=== PATIENT | male | born 1955 | race Caucasian/White ===

== ENCOUNTER → 2024-05-11 | Outpatient (CLI) | payer MEDICARE ==
[2024-05-11 12:05] LABS: INR 0.9 (<1.2); Partial Thromboplastin Time 23.7 sec (22.0-30.0); Prothrombin Time 10.4 sec (10.0-12.5)
[2024-05-11 15:54] LABS: ALT 26 U/L (10-49); AST 28 U/L (14-35); Albumin 4.4 g/dL (3.8-4.9); Albumin/Globulin Ratio 1.76 Ratio (1.60-3.17); Alkaline Phosphatase 74 U/L (41-126); BUN/Creat Ratio 14.88 Ratio (12.00-20.00); Blood Urea Nitrogen 11.9 mg/dL (9.0-27.0); Carbon Dioxide 23.9 mmol/L (21.6-31.8); Chloride 99 mmol/L (96-109); Chol/HDL Ratio 2.57 Ratio; Globulin 2.5 g/dL (1.6-3.3); Glucose 94 mg/dL (70-110); LDL Cholesterol,Calculated 83.5 mg/dL (0.0-131.0); Potassium 4.7 mmol/L (3.5-5.5); Prostate Specific Antigen 0.64 ng/mL (0.000-4.500); Sodium 135 mmol/L (135-145); Total Bilirubin 0.6 mg/dL (0.3-1.2); Total Protein 6.9 g/dL (6.2-8.2); VLDL Calculation 13.04 mg/dL (5.00-40.00)
[2024-05-11 16:52] LABS: Basophils # (A) 0.06 X 10*3/uL (0.00-0.10); Basophils % (A) 0.7 %; Eosinophils # (A) 0.36 X 10*3/uL (0.04-0.35); Eosinophils % (A) 4.4 %; HCT 39.1 % (39.6-50.0); HGB 13.6 g/dL (13.0-17.0); MCH 31.3 pg (27.0-32.0); MCHC 34.8 g/dL (32.0-37.0); MCV 89.9 FL (80.0-97.0); Mean Platelet Volume 11.5 FL (9.5-12.2); Monocytes # (A) 0.85 X 10*3/uL (0.20-1.00); Monocytes % (A) 10.5 %; NRBC Per 100 WBC 0 X 10*3/uL (0.00-0.01); Neutrophils # (A) 5.51 X 10*3/uL (1.80-7.70); Neutrophils % (A) 67.9 %; Platelet Count 174 X 10*3/uL (140-440); RBC 4.35 X 10*6/uL (4.40-5.60); RDW 13.2 % (11.5-14.5); WBC 8.12 X 10*3/uL (4.50-10.00)
== END | disposition home or self-care (01) ==
LOC: LABPAT 10:43
PROVIDERS: ATTEND Orthopaedic Surgery
DX: Z01.818 Encounter for other preprocedural examination (principal); Z22.322 Carrier or suspected carrier of Methicillin resistant Staphylococcus aureus; Z13.0 Encounter for screening for diseases of the blood and blood-forming organs and certain disorders involving the immune mechanism; I10 Essential (primary) hypertension; E78.2 Mixed hyperlipidemia; E78.00 Pure hypercholesterolemia, unspecified; M16.11 Unilateral primary osteoarthritis, right hip
CPT/HCPCS: 80053; 80061; 84153; 85025; 85610; 85730; 86850; 86900; 86901; 87070; 93005

== ENCOUNTER 2024-05-22 11:19 | Day surgery (SDC) | payer MEDICARE, OTHER ==
[~2024-05-22 11:19] MED LIST: TRANEXAMIC 1,000 MG/100ML-NACL 1,000 MG in SALINE 1 100ML.BAG IVPB PRN
[2024-05-22] MEDS ORDERED: MAGNESIUM HYDROXIDE 2,400 MG/30 ML CUP PO PRN (11:51)
[2024-05-22] MEDS ORDERED: NALOXONE 0.4 MG/ML 1 ML VIAL IV PRN (11:51)
[2024-05-22] MEDS ORDERED: HYDROmorphone 0.5 MG/0.5 ML SYRINGE IVP PRN ×3 (11:51)
[2024-05-22] MEDS ORDERED: ONDANSETRON 4 MG/2 ML VIAL IVP PRN (11:51)
[2024-05-22] MEDS: ACETAMINOPHEN TAB 500 MG TAB PO PRN (11:53)
[2024-05-22] MEDS: GABAPENTIN 300 MG CAP PO PRN (11:53)
[2024-05-22] MEDS: MELOXICAM 7.5 MG TAB PO PRN (11:54)
[2024-05-22] MEDS: ONDANSETRON 4 MG/2 ML VIAL IVP ONE (12:17)
[2024-05-22] MEDS: DEXAMETHASONE SOD PHOSPHATE 4 MG/ML 1 ML VIAL IV ONE (12:18)
[2024-05-22] MEDS: LACTATED RINGERS 1,000 ML IV SCH (12:18)
[2024-05-22] MEDS: LIDOCAINE 1% (10MG/ML) FOR IV START INTRADERMA PRN (12:21)
[2024-05-22] MEDS: MIDAZOLAM 2 MG/2 ML VIAL IVP ONE (12:26)
[2024-05-22] MEDS: IV FLUID CONTINUATION 1,000 ML IV ONE ×2 (12:28→14:50)
--- NOTE | 2024-05-22 12:35 | P.ANPRN ---
Procedure Note - Anesthesia - Nerve Block Performed Right Ivan Single Time Out Performed: Yes Date of Procedure: 05/22/24 Procedure Start Time: : Procedure Stop Time: 12:35 Location of Patient: OR Indication: Acute Post-Operative Pain, Dx/Pain Location (Right hip pain ), Requested by Surgeon Sedation Type: Sedate with meaningful contact maintained Preparation: Sterile Prep Position: Supine Catheter: None Needle Types: Pajunk Needle Gauge: 21 Ultrasound used to visualize needle placement: Yes Ultrasound used to observe medication spread: Yes Injectate: Other (see comment) (20ml 0.2% Ropivacaine) Blood Aspirated: No Resistance on Injection: Normal Image Stored and Saved: Yes Events: Uneventful and Well Tolerated
[2024-05-22] MEDS ORDERED: SODIUM CHLORIDE 0.9% (PF) 10 ML VIAL ONE (12:42)
[2024-05-22] MEDS ORDERED: NEOSTIGMINE 1 MG/ML 10 ML VIAL ONE (12:42)
[2024-05-22] MEDS ORDERED: LIDOCAINE 1% INJ 10MG/ML (20 ML MDV) ONE (12:42)
[2024-05-22] MEDS ORDERED: MIDAZOLAM 2 MG/2 ML VIAL ONE (12:42)
[2024-05-22] MEDS: ceFAZolin 1,000 MG in SODIUM CHLORIDE 0.9% 1,000 ML IRRIGATION ONE (12:42)
[2024-05-22] MEDS ORDERED: PROPOFOL 10 MG/ML 20 ML VIAL IV ONE (12:42)
[2024-05-22] MEDS ORDERED: KETAMINE HCL IN 0.9 % NACL 50 MG/5 ML SYRINGE ONE (12:42)
[2024-05-22] MEDS ORDERED: DEXAMETHASONE SOD PHOSPHATE 4 MG/ML 1 ML VIAL ONE (12:42)
[2024-05-22] MEDS: ceFAZolin 3 GM in SODIUM CHLORIDE 0.9% 100 ML IVPB PRN (12:42)
[2024-05-22] MEDS ORDERED: fentaNYL (PF) 50 MCG/ML 2 ML AMP ONE (12:42)
[2024-05-22] MEDS ORDERED: TRANEXAMIC 1,000 MG/100ML-NACL PREMIX BAG ONE (12:42)
[2024-05-22] MEDS ORDERED: ROCURONIUM 10 MG/ML (5 ML VIAL) IV ONE (12:42)
[2024-05-22] MEDS ORDERED: SUCCINYLCHOLINE CHLORIDE 200 MG/10 ML VIAL IV ONE (12:42)
[2024-05-22] MEDS ORDERED: ROPIVACAINE 5 MG/ML 30 ML VIAL ONE (12:42)
[2024-05-22] MEDS ORDERED: GLYCOPYRROLATE 0.2 MG/ML 2 ML VIAL ONE (12:42)
[2024-05-22] MEDS ORDERED: HYDROmorphone (PF) 1 MG/ML ONE (12:42)
[2024-05-22] MEDS: ROPIVACAINE 5 MG/ML 30 ML VIAL MISCELLANE ONE ×2 (13:10→13:59)
--- NOTE | 2024-05-22 14:07 | P.OP ---
Date of Procedure: 05/22/24 Preoperative Diagnosis: Severe osteoarthritis right hip Postoperative Diagnosis: Severe osteoarthritis, right hip Procedure(s) Performed: Right total hip arthroplasty with a direct anterior approach Implants: [employer] Polarstem standard size 7 with a collar [employer] R3, 3 hole hemispherical acetabular shell, 60 mm [employer] Reflection 6.5 mm cancellus screw, 20 mm 2 [employer] OR30, 46 mm ID, 60 mm OD, Oxinium dual mobility liner [employer] OR30, 28 mm ID, 46 mm OD, XLPE Dual mobility insert [employer] Oxinium femoral head 28 m, +12 All components were press-fit. The articulation is Oxinium on polyethylene. Anesthesia: spinal Surgeon: Delbert Herrera Predictive Maintenance Specialist #1: Kellie Benjamin Estimated Blood Loss (ml): 500 Pathology: none sent Condition: stable Disposition: PACU Indications for Procedure: After failure of conservative treatment we discussed the surgical and nonsurgical treatment options at length. Patient wishes to proceed with a total hip arthroplasty with a direct anterior approach. Complications specific to this procedure were discussed at length, including but not limited to infection, leg length discrepancy, dislocation, nerve injury, and fracture. Covid-19 was also discussed at length with the patient, and they are aware of the current policies and procedures. The patient was given the option of delaying surgery, but they elect to proceed knowing these risks. Patient is aware of all these complications and informed consent was obtained Operative Findings: The operative findings are consistent with severe osteoarthritis of the right hip Description of Procedure: The patient was seen and evaluated in the preoperative area and the consent was reviewed. The operative site was marked with a skin marker. The patient verified the procedure and operative site. A PRIYA block was placed by anesthesia in the preoperative area. The patient was then brought to the operating room and given preoperative antibiotics intravenously. 1 g of Tranexamic acid was also given intravenously. A spinal anesthetic was administered by the anesthesia department. The patient was then placed on the [place] table with the bony prominences well-padded. The hip area was then prepped with a ChloraPrep solution and draped in the usual sterile fashion. A universal timeout was then performed, which confirmed the patient's name, surgical site, ALLERGIES, and procedure being performed on the consent. Next the incision site was located at 1 cm distal and 4 cm lateral to the anterior superior iliac spine. The skin and subcutaneous tissues were sharply incised. Incision was carefully dissected down to the fascia overlying the tensor fascia jamey muscle. This fascia was then incised in line with the muscle fibers. Care was taken to stay laterally in order to avoid injuring the lateral femoral cutaneous nerve. Next, using blunt finger dissection, the tensor fascia jamey muscle was dissected off its investing fascia. The muscle was then carefully retracted laterally with a cobra retractor over the lateral neck of the femur. Next, the circumflex vessels were identified and cauterized using the Aquamantis device. The anterior hip capsule was then exposed. The capsule was then opened and an inverted T fashion. The retractors were then placed intracapsularly. The retractors were maintained intracapsular throughout the procedure. The proximal femur was then visualized. Fluoroscopic x-rays were then taken in order to evaluate the preoperative leg lengths. A small amount of traction was placed on the leg. The femoral neck was then osteotomized at the appropriate level above the lesser trochanter. A small wedge of bone was then removed from the remaining femoral h ead. Next, using a corkscrew the femoral head was removed from the acetabulum. On gross visual inspection, the femoral head had complete loss of articular cartilage and multiple periarticular osteophytes. The femoral head was then measured. Attention was then turned to the acetabulum. The acetabulum was exposed and any remaining labrum was excised. Sequential reaming of the acetabulum was performed using fluoroscopic guidance until there was a good bed of bleeding cancellus bone. When the appropriate size was reached, a trial was then placed. The position and fit of the trial was checked with fluoroscopy. The trial was then removed. Then, using fluoroscopic guidance, the final implant was impacted at 20 of anteversion and 40 of abduction, and fully seated in the acetabulum. 2 screws were then placed in the acetabulum. Again fluoroscopy was used to check position of the screws. Next, the liner was then impacted, with a 20 elevated liner located in the anterior superior quadrant. Component locking was confirmed. Attention was then directed to the femur. With the aid of the [place] table, the femur was externally rotated to approximately 130, extended, and adducted under the opposite leg. A side hook was then placed under the proximal femur, and the side hook elevator was used to elevate the proximal femur while releasing the capsule. Retractors were then placed. A capsular release was performed, as well as a release of the conjoined tendon, which afforded excellent visualization of the proximal femur. Next, a box osteotome was used to lateralize the proximal femur. A section hand was then used to locate the femoral canal. Sequential broaching was then performed with appropriate size which afforded excellent fixation in the proximal femur. A trial was then placed with appropriate head and neck, and the hip was gently reduced with the aid of the [place] table. Fluoroscopy was then used to check position of the components, as well as to evaluate the leg lengths and offset. The leg lengths and offset were measured as closely as possible to ensure stability of the hip. The hip was then gently dislocated and the trials were then removed. Final im plants were then impacted and the hip was again reduced. Final fluoroscopic x- rays confirmed that the components were in anatomic position. The leg lengths and offset were measured and were found to coincide with the trial measurements. The hip was also taken through range of motion, and found to be stable. The hip was then copiously irrigated with antibiotic solution with pulsatile lavage. The hip was then irrigated with Irrisept solution. The soft tissues were then injected with a ropivacaine solution. A second dose of 1 g of Tranexamic acid was also given intravenously. The fascia was then closed with 2-0 strata fix suture. The subcutaneous tissue was closed with 3-0 Vicryl. The subcuticular tissue was closed with 3-0 moncryl suture. The skin was then closed with Exofin skin glue. After the glue and dried, and Optifoam silver impregnated dressing was applied. The patient was then transferred to the recovery room in stable condition. The resident assistant WHITLEY Waterman was required due to the complexity of surgery, and the need for skilled director surgical for positioning, draping, exposure, retraction, and closure of the wound.
--- NOTE | 2024-05-22 14:18 | XR ---
Intraoperative/procedural fluoroscopic services were provided for right total hip arthroplasty. Total fluoroscopy time is 1.11 minutes with a total of 7 submitted images to PACS. Total DAP 5.8690 Gycm2. Please see the operative note for further details. [facility], , 05/22/2024 2:16 PM
[2024-05-22] MEDS: HYDROmorphone 0.5 MG/0.5 ML SYRINGE IVP PRN (14:30)
--- NOTE | 2024-05-22 15:00 | XR ---
EXAMINATION TYPE: XR Hip Limited RT DATE OF EXAM: 05/22/2024 2:55 PM INDICATION: Patient age:Male; 68 years old; Reason for study: Status post hip surgery, assess surgical alignment; PHH. COMPARISON: Right hip fluoroscopic images of the same day. TECHNIQUE: The right hip was examined in single frontal projection. FINDINGS: Postsurgical changes from right total hip arthroplasty. Hardware appears intact with approp riate alignment. There is surrounding expected soft tissue edema and gas. No acute fracture or disloc ation. IMPRESSION: Postsurgical changes from right total hip arthroplasty. Hardware appears intact and appropriately ali gned. [facility], , 05/22/2024 2:58 PM
[2024-05-22] MEDS: HYDROcodone/APAP 7.5-325MG 1 EACH TAB PO PRN ×2 (16:10→22:11)
[2024-05-22] MEDS: SODIUM CHLORIDE 0.9% 1,000 ML IV SCH (17:28)
[2024-05-22] MEDS: SENNOSIDES-DOCUSATE SODIUM 1 EACH TAB PO SCH (20:04)
--- NOTE | 2024-05-22 23:08 | P.CONS ---
History of Present Illness - Reason for Consult Consult date: 05/22/24 Medical management Requesting physician: Delbert Herrera - Chief Complaint Right hip surgery - History of Present Illness Pleasant 68-year-old patient follows with Dr. Moore. Chronic medical conditions include hypertension, hyperlipidemia, osteoarthritis. Patient had a DVT in the remote past. 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 He took Coumadin for some time then was switched over to aspirin for DVT prophylaxis. No further episodes. Patient now has undergone right total hip arthroplasty. Postprocedure sitting up in the bed. Did tolerate her supper. No nausea vomiting. Pain is controlled. Denies any cardiac history. Review of systems: GEN.: None EYES: None HEENT: None NECK: None RESPIRATORY: None CARDIOVASCULAR: None GASTROINTESTINAL: None GENITOURINARY: None MUSCULOSKELETAL: Joint pains LYMPHATICS: None HEMATOLOGICAL: None PSYCHIATRY: None Social history: . Retired [employer]. Stopped smoking 2013. Smoked for 20 to 25 years. About half pack a day. Alcohol occasionally. Physical examination: VITAL SIGNS: 97.8, 116, 16, 150 very 2, 93% on 5 L GENERAL: BMI 33.4, reclining bed awake comfortable. EYES: Pupils equal. Conjunctiva doris l. HEENT: External appearance of nose and ears normal, oral cavity grossly normal. NECK: JVD not raised; masses not palpable. HEART: First and second heart sounds are normal; no edema. LUNGS: Respiratory rate normal; decreased breath sounds. ABDOMEN: Soft, nontender, liver spleen not palpable, no masses palpable. PSYCH: Alert and oriented x3; mood and affect doris l. MUSCULOSKELETAL:No Clubbing/cyanosis;muscles-grossly intact. Dressing over the incision site right hip. NEUROLOGICAL: Cranial nerves grossly intact; no facial asymmetry, power and sensation grossly intact. LYMPHATICS: No lymph nodes palpable in the axilla and neck INVESTIGATIONS, reviewed in the clinical context: May 11, 2024: White count 8.1 hemoglobin 13.6 platelets 174 sodium 135 potassium 4.7 creatinine 0.8 LDL 83.5 Assessment plan: -Right total hip arthroplasty IV cefazolin for infection prophylaxis. Eliquis for DVT prophylaxis. Decadron x 1 dose. [place] for pain control -Primary osteoarthritis Pain medication as needed -Essential hypertension Zestril -Hyperlipidemia Crestor -Obesity BMI 33.4 Weight loss measures -Full code Care was discussed with patient. Questions answered. Thank you Dr. Herrera Past Medical History Past Medical History: Deep Vein Thrombosis (DVT), Hyperlipidemia, Hypertension, Osteoarthritis (OA) Additional Past Medical History / Comment(s): Lt. leg DVT approx. 2004, Factor V Leiden, "lower descending aorta mild enlargement" - has not changed since dis covered. History of Any Multi-Drug Resistant Organisms: None Reported Past Surgical History: Adenoidectomy, Tonsillectomy Past Anesthesia/Blood Transfusion Reactions: No Reported Reaction Past Psychological History: No Psychological Hx Reported Smoking Status: Former smoker Past Alcohol Use History: Occasional Additional Past Alcohol Use History / Comment(s): quit 2013, smoked 20-25 yrs 1/2 ppd Past Drug Use History: None Reported - Past Family History Daughter(s) Additional Family Medical History / Comment(s): Factor V Leiden Medications and Allergies Home Medications Medication Instructions Recorded Confirmed Type Aspirin [Adult Low Dose Aspirin EC] 81 mg PO DAILY 05/18/24 05/22/24 History HYDROcodone/APAP 7.5-325MG [[place] 1 tab PO Q8HR PRN 05/18/24 05/22/24 History 7.5-325] Ibuprofen [Motrin] 800 mg PO Q8H PRN 05/18/24 05/22/24 History Multivitamins, Thera [Multivitamin 1 tab PO DAILY 05/18/24 05/22/24 History (formulary)] Rosuvastatin [Crestor] 10 mg PO DAILY 05/18/24 05/22/24 History lisinopriL [Zestril] 20 mg PO DAILY 05/18/24 05/22/24 History HYDROcodone/APAP 7.5-325MG [[place] 1 - 2 tab PO Q6H PRN #32 tab 05/22/24 Rx 7.5-325] Sennosides [Senokot] 2 tab PO DAILY PRN #60 tablet 05/22/24 Rx Allergies Allergy/AdvReac Type Severity Reaction Status Date / Time No Known Allergies Allergy Verified 05/22/24 11:52 Physical Exam Vitals: Vital Signs Temp Pulse Resp BP BP Pulse Ox 05/22/24 17:42 116 H 150/82 93 L 05/22/24 17:27 111 H 149/86 94 L 05/22/24 17:12 101 H 161/101 94 L 05/22/24 16:57 100 145/88 91 L 05/22/24 16:42 99 155/93 91 L 05/22/24 16:27 98 152/97 95 05/22/24 16:12 94 154/97 96 05/22/24 15:57 89 150/93 93 L 05/22/24 15:42 97.8 F 85 17 148/84 94 L 05/22/24 15:10 77 18 165/83 93 L 05/22/24 14:55 92 20 180/86 93 L 05/22/24 14:40 89 20 184/94 93 L 05/22/24 14:25 96.9 F L 98 20 184/94 95 05/22/24 12:34 76 16 157/77 98 05/22/24 12:16 97.2 F L 75 18 182/100 97 Intake and Output 05/22/24 05/22/24 05/22/24 06:59 14:59 22:59 Intake Total 1101 Output Total 500 Balance 601 Intake: IV 1101 Output: Estimated Blood Loss 500 Other: Weight 121.2 kg 121.2 kg
[2024-05-23] MEDS: IPRATROPIUM-ALBUTEROL 3 ML NEB INHALATION SCH (00:13)
[2024-05-23 08:22] VITALS: BP 147/88; RESP 17; TEMP 97.8
[2024-05-23 08:54] LABS: Basophils # (A) 0.02 X 10*3/uL (0.00-0.10); Basophils % (A) 0.2 %; Eosinophils # (A) 0 X 10*3/uL (0.04-0.35); Eosinophils % (A) 0 %; HCT 34.1 % (39.6-50.0); HGB 11.9 g/dL (13.0-17.0); Lymphocytes # (A) 0.58 X 10*3/uL (0.90-5.00); MCH 31.8 pg (27.0-32.0); MCHC 34.9 g/dL (32.0-37.0); MCV 91.2 FL (80.0-97.0); Mean Platelet Volume 11.3 FL (9.5-12.2); Monocytes # (A) 0.84 X 10*3/uL (0.20-1.00); Monocytes % (A) 7.2 %; NRBC Per 100 WBC 0 X 10*3/uL (0.00-0.01); Neutrophils # (A) 10.14 X 10*3/uL (1.80-7.70); Neutrophils % (A) 87.2 %; Platelet Count 148 X 10*3/uL (140-440); RBC 3.74 X 10*6/uL (4.40-5.60); WBC 11.63 X 10*3/uL (4.50-10.00)
[2024-05-23 08:58] VITALS: PULSE 110
[2024-05-23] MEDS ORDERED: ATORVASTATIN 20 MG TAB PO SCH ×2 (09:00→18:00)
[2024-05-23] MEDS ORDERED: lisinopriL 20 MG TAB PO SCH (09:00)
[2024-05-23] MEDS: lisinopriL 20 MG TAB PO SCH (09:08)
[2024-05-23] MEDS: APIXABAN 2.5 MG TABLET PO SCH (09:08)
[2024-05-23] MEDS: MULTIVITAMINS, THERA 1 EACH TAB PO SCH (09:08)
--- NOTE | 2024-05-23 10:30 | P.DS ---
Providers Expected date of discharge: 05/23/24 Attending physician: Delbert Herrera Consults: 05/22/24 11:51 Consult Physician Routine Consulting Provider: Igor Resendiz Consult Reason/Comments: medical management and anticoagulation Do you want consulting provider notified?: Yes Primary care physician: Patrick Moore - Discharge Diagnosis(es) (1) Osteoarthritis of right hip Current Visit: Yes Status: Acute (2) S/P total hip arthroplasty Current Visit: Yes Status: Acute Hospital Course: This is a 68-year-old male with known history of degenerative arthritis of the right hip. The patient presented for evaluation as an outpatient. After discussion and consideration patient elects to proceed with total hip arthroplasty. The patient is seen preoperatively by Dr. Herrera and medically cleared for surgery by their primary care physician. Patient is [facility] to [facility] on 05/22/2024 for total hip arthroplasty. The procedure is performed without complication or sequelae. The patient is doing well postoperatively. Labs and vital signs are stable on day of discharge. On day of discharge patient's hip incision is healing well. There is minimal erythema. There is no drainage noted at this time. There is minimal soft tissue swelling to the hip and thigh. Patient has full foot and ankle motion without difficulty or pain. Calf is soft and nontender to palpation. Neurovascular status to the right lower extremity is intact. Patient is discharged home in good condition. Please see med rec for accurate list of home medications. Plan - Discharge Summary Discharge Rx Participant: Yes New Discharge Prescriptions: New HYDROcodone/APAP 7.5-325MG [[place] 7.5-325] 1 - 2 tab PO Q6H PRN #32 tab PRN Reason: Pain Sennosides [Senokot] 2 tab PO DAILY PRN #60 tablet PRN Reason: Constipation Apixaban [Eliquis] 2.5 mg PO BID 30 Days #60 tab No Action Aspirin [Adult Low Dose Aspirin EC] 81 mg PO DAILY lisinopriL [Zestril] 20 mg PO DAILY Rosuvastatin [Crestor] 10 mg PO DAILY Ibuprofen [Motrin] 800 mg PO Q8H PRN PRN Reason: Pain HYDROcodone/APAP 7.5-325MG [[place] 7.5-325] 1 tab PO Q8HR PRN PRN Reason: Pain Multivitamins, Thera [Multivitamin (formulary)] 1 tab PO DAILY Discharge Medication List Aspirin [Adult Low Dose Aspirin EC] 81 mg PO DAILY 05/18/24 [History] HYDROcodone/APAP 7.5-325MG [[place] 7.5-325] 1 tab PO Q8HR PRN 05/18/24 [History] Ibuprofen [Motrin] 800 mg PO Q8H PRN 05/18/24 [History] Multivitamins, Thera [Multivitamin (formulary)] 1 tab PO DAILY 05/18/24 [History] Rosuvastatin [Crestor] 10 mg PO DAILY 05/18/24 [History] lisinopriL [Zestril] 20 mg PO DAILY 05/18/24 [History] HYDROcodone/APAP 7.5-325MG [[place] 7.5-325] 1 - 2 tab PO Q6H PRN #32 tab 05/22/24 [Rx] Sennosides [Senokot] 2 tab PO DAILY PRN #60 tablet 05/22/24 [Rx] Apixaban [Eliquis] 2.5 mg PO BID 30 Days #60 tab 05/23/24 [Rx] Follow up Appointment(s)/Referral(s): Delbert Herrera DO [Doctor of Osteopathic Medicine] - 2 Weeks Activity/Diet/Wound Care/Special Instructions: Weightbearing as tolerated with walker. Leave dressing intact. Dressing may be removed by home care nurse or by patient in 7 days. Then change dressing twice daily until follow up. May shower with initial dressing intact and after removal. If dressing become saturated, please remove. Please take Eliquis twice daily for 30 days to prevent blood clots. Recommend use of compression stockings daily until follow up to help prevent swelling and blood clots. May remove at night before sleeping. Please follow-up with [facility] in 2 weeks and call with any questions or concerns, . Discharge Disposition: HOME WITH HOME HEALTH SERVICES
--- NOTE | 2024-05-23 18:24 | P.PN ---
Progress Note - Text Progress Note Date: 05/23/24 - Chief Complaint Right hip surgery - History of Present Illness Pleasant 68-year-old patient follows with Dr. Mooer. Chronic medical conditions include hypertension, hyperlipidemia, osteoarthritis. Patient had a DVT in the remote past. 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 He took Coumadin for some time then was switched over to aspirin for DVT prophylaxis. No further episodes. Patient now has undergone right total hip arthroplasty. Postprocedure sitting up in the bed. Did tolerate her supper. No nausea vomiting. Pain is controlled. Denies any cardiac history. May 23: Patient did ambulate with physical therapy. Pain at the operative site. No nausea vomiting. Did tolerate his diet. Start ferrous sulfate for some drop in hemoglobin. Care was discussed patient his and daughter at bedside. Questions answered. Overnight pulse ox meter was not correct giving long readings. Patient told to use incentive spirometry. Social history: . Retired [employer]. Stopped smoking 2013. Smoked for 20 to 25 years. About half pack a day. Alcohol occasionally. Physical examination: VITAL SIGNS: 97.8, 85, 17, 140 / 88, 91% room air GENERAL: BMI 33.4, reclining bed awake comfortable. EYES: Pupils equal. Conjunctiva doris l. HEENT: External appearance of nose and ears normal, oral cavity grossly normal. NECK: JVD not raised; masses not palpable. HEART: First and second heart sounds are normal; no edema. LUNGS: Respiratory rate normal; decreased breath sounds. ABDOMEN: Soft, nontender, liver spleen not palpable, no masses palpable. PSYCH: Alert and oriented x3; mood and affect doris l. MUSCULOSKELETAL:No Clubbing/cyanosis;muscles-grossly intact. Dressing over the incision site right hip. INVESTIGATIONS, reviewed in the clinical context: May 23: White: 0.6 hemoglobin 11.9 platelets 148 May 11, 2024: White count 8.1 hemoglobin 13.6 platelets 174 sodium 135 potassium 4.7 creatinine 0.8 LDL 83.5 Assessment plan: -Right total hip arthroplasty IV cefazolin for infection prophylaxis. Eliquis for DVT prophylaxis. Decadron x 1 dose. [place] for pain control -Acute postprocedure blood loss anemia expected surgery Start ferrous sulfate -Leukocytosis, reactive No clinical evidence of infection. Incision healing well per Ortho -Primary osteoarthritis Pain medication as needed -Essential hypertension Zestril -Hyperlipidemia Crestor -Obesity BMI 33.4 Weight loss measures -Full code Care was discussed with patient. and daughter. Ferrous sulfate. Follow- up with PCP within the week. Thank you Dr. Herrera Past Medical History Past Medical History: Deep Vein Thrombosis (DVT), Hyperlipidemia, Hypertension, Osteoarthritis (OA) Additional Past Medical History / Comment(s): Lt. leg DVT approx. 2004, Factor V Leiden, "lower descending aorta mild enlargement" - has not changed since discovered. History of Any Multi-Drug Resistant Organisms: None Reported Past Surgical History: Adenoidectomy, Tonsillectomy Past Anesthesia/Blood Transfusion Reactions: No Reported Reaction Past Psychological History: No Psychological Hx Reported Smoking Status: Former smoker Past Alcohol Use History: Occasional Additional Past Alcohol Use History / Comment(s): quit 2013, smoked 20-25 yrs 1/2 ppd Past Drug Use History: None Reported
== END 2024-05-23 12:40 | disposition home health service (06) ==
LOC: OR 11:19 → 4SSUR 14:18 → OR 05-23 12:40
PROVIDERS: ATTEND Orthopaedic Surgery
DX: M16.11 Unilateral primary osteoarthritis, right hip (principal); E66.9 Obesity, unspecified; E78.5 Hyperlipidemia, unspecified; G89.18 Other acute postprocedural pain; I10 Essential (primary) hypertension; Z86.718 Personal history of other venous thrombosis and embolism; Z87.891 Personal history of nicotine dependence; F10.90 Alcohol use, unspecified, uncomplicated; Z68.33 Body mass index [BMI] 33.0-33.9, adult; Z90.89 Acquired absence of other organs; Z79.01 Long term (current) use of anticoagulants; Z79.82 Long term (current) use of aspirin; Z79.899 Other long term (current) drug therapy
CPT/HCPCS: 94640; 94760; 97161; 97166; 64999; 85025; 73501; 27130; C1776; J2250; J1100; J0690 ×3; J2405; J2795; J1171